=== PATIENT | male | born 1965 | race Caucasian/White ===

== ENCOUNTER 2017-06-23 19:25 | Emergency (ER) | payer OTHER ==
[2017-06-23 19:42] VITALS: TEMP 98.4
[2017-06-23] MEDS ORDERED: PROPARACAINE 0.5% 15 ML OPHT DROP ONE (20:04)
[2017-06-23] MEDS ORDERED: FLUORESCEIN SODIUM 1 MG STRIP OP ONE (21:13)
--- NOTE | 2017-06-23 21:21 | EDPHY ---
H & P Stated Complaint: right eye irritation-bug flew in it earlier Time Seen by Provider: 06/23/17 19:45 HPI/ROS: Chief complaint: Right eye irritation History of present illness: This is a 51-year-old male who presents to the emergency department for right eye irritation. Patient reports earlier today a bug flew and struck him in his right eye. Was uncomfortable and he rubbed it. Since then he has had mild irritation. However, he is more concerned he has noticed a blister forming over the outer aspect of the white aspect of his eye. He denies other injuries. He denies pain in the eye. He denies visual disturbances. No other symptoms reported. - Personal History Current Tetanus Diphtheria and Acellular Pertussis (TDAP): Yes - Medical/Surgical History Hx Asthma: No Hx Chronic Respiratory Disease: No Hx Diabetes: No Hx Cardiac Disease: No Hx Renal Disease: No Hx Cirrhosis: No Hx Alcoholism: No Hx HIV/AIDS: No Hx Splenectomy or Spleen Trauma: No - Social History Smoking Status: Never smoked - Physical Exam Exam: General: Alert, nontoxic Eyes: There is no discharge from the eye. There does appear to be a small fluid collection over the sclera of the lateral aspect of the right eye. The conjunctiva is not injected. There is no hyphema. No hypopyon. PERRLA. EOM intact. Red reflex present. Left eye unremarkable. Skin: Periorbital tissue unremarkable. Constitutional: Initial Vital Signs Temperature (C) 36.9 C 06/23/17 19:40 Heart Rate 67 06/23/17 19:40 Respiratory Rate 20 06/23/17 19:40 Blood Pressure 111/73 06/23/17 19:40 O2 Sat (%) 97 06/23/17 19:40 O2 Delivery Mode Room Air Allergies/Adverse Reactions: Penicillins Allergy (Intermediate, Verified 06/23/17 19:39) Rash Home Medications: Medication Instructions Recorded NK [No Known Home Meds] 06/23/17 Medical Decision Making Procedures: Procedure: Slit-lamp examination Indication: Eye irritation after foreign body hit it Patient's eye was instilled with fluorescein. It was examined with cobalt blue and white light. No foreign body. No filling defect. No cell and flare. No Desire sign. ED Course/Re-evaluation: Patient discussed with my secondary supervising physician Dr. Yarelis Patiño. Patient presents for right eye irritation and some blistering to the sclera of the lateral aspect of the right eye after being struck by a bug. He has an unremarkable eye history including no use of contacts, glasses or eye surgery. Examination is otherwise unremarkable. I have consulted with on-call ophthalmology Dr. Francis Laboy. He recommends placed patient on TobraDex, 1 drop every 8 hours for 7 days. Patient can follow up in his clinic. Home care is discussed with the patient. Return precautions are given. Patient voiced understanding and agreement with plan. Differential Diagnosis: Included but not limited to foreign body, corneal abrasion, corneal ulceration, globe rupture unlikely - Data Points Medications Given: Discontinued Medications Tobramycin/Dexamethasone (Tobradex) 1 drops RTEYE EDNOW ONE Stop: 06/23/17 21:25 Last Admin: 06/23/17 21:42 Dose: 1 drop Departure - Departure Disposition: Home, Routine, Self-Care Clinical Impression: Eye injury Qualifiers: Encounter type: initial encounter Laterality: right Qualified Code(s): S05.91XA - Unspecified injury of right eye and orbit, initial encounter Condition: Good Instructions: Eye Pain (ED) Additional Instructions: Please follow-up with Ophthalmology for continued evaluation and care Place 1 drop of the TobraDex in your eye every 8 hours for 7 days If symptoms worsen or new symptoms develop return to the emergency room for recheck Referrals: MERLY MORSE [Primary Care Provider] - As per Instructions Francis Laboy MD [Medical Doctor] - As per Instructions
[2017-06-23] MEDS ORDERED: TOBRAMYCIN/DEXAMETH 5 ML OPHT.BTL RTEYE ONE (21:24)
[2017-06-23 21:44] VITALS: BP 112/68; PULSE 62; RESP 18; O2SAT 96
== END 2017-06-23 21:43 | disposition home or self-care (01) ==
DX: S05.91XA Unspecified injury of right eye and orbit, initial encounter (principal); W22.8XXA Striking against or struck by other objects, initial encounter

== ENCOUNTER 2018-02-16 17:31 | Observation (INO) | payer OTHER ==
--- NOTE | 2018-02-16 17:44 | EDPHY ---
H & P Time Seen by Provider: 02/16/18 17:44 HPI/ROS: CHIEF COMPLAINT: Left leg injury HISTORY OF PRESENT ILLNESS: The patient arrives via ambulance after he fell snowboarding today. The patient struck a tree and had a twisting injury involving the left leg. The patient reportedly felt a pop and was unable to weightbear. The patient received 200 mcg of fentanyl in route. The patient currently complains of mild pain. The patient denies any associated numbness or weakness. The patient denies any pain in his knee, hip or back. He denies any headache, neck pain, chest pain or difficulty breathing. The patient reports he last ate at noon. He did drink a half a beer at 2:00 p.m.. REVIEW OF SYSTEMS: A comprehensive 10 point review of systems is otherwise negative aside from elements mentioned in the history of present illness. Source: Patient, EMS - Personal History Current Tetanus/Diphtheria Vaccine: Yes - Medical/Surgical History Hx Asthma: No Hx Chronic Respiratory Disease: No Hx Diabetes: No Hx Cardiac Disease: No Hx Renal Disease: No Hx Cirrhosis: No Hx Alcoholism: No Hx HIV/AIDS: No Hx Splenectomy or Spleen Trauma: No Other PMH: Past medical history: Noncontributory - Social History Smoking Status: Never smoked - Physical Exam Exam: General Appearance: Alert, no distress Head: Atraumatic Eyes: Pupils equal, round, reactive ENT, Mouth: No hemotympanum, no oral trauma Neck: Nontender, trachea midline Respiratory: No chest wall tender, no subcutaneous air, lungs clear bilaterally Cardiovascular: Regular rate and rhythm Abdomen: Abdomen is soft and nontender, pelvis stable Skin: No lacerations, No abrasion Back: No midline T/L/S pain Extremities: Tenderness, swelling and deformity to left distal tib-fib area Neurological: GCS 15, 5/5 strength all 4 extremities, normal sensory exam all 4 extremities Allergies/Adverse Reactions: Penicillins Allergy (Intermediate, Verified 06/23/17 19:39) Rash Home Medications: Medication Instructions Recorded oxyCODONE/APAP 5/325 [Percocet 1 - 2 tab PO Q6-8PRN PRN #20 tab 02/16/18 5/325 (RX)] Medical Decision Making - Diagnostics Imaging Results: Imaging Impressions Tibia/Fibula X-Ray 02/16/18 17:35 Impression: Tibial and fibular shaft fractures. ED Course/Re-evaluation: The patient presents the ED with a closed distal tib-fib fracture. The patient has a transverse fracture involving the distal 3rd of the tibia and fibula. The patient's fracture is closed. The patient is neurologically intact. The patient has been placed in a three-way ortho glass splint. The patient received IV fentanyl by paramedics. The extremity was elevated and ice was applied after splinting in the emergency department. Consultation was made with Dr. Bari Banks at 5:[address] Banks will be taking the patient to the operating room this evening for ORIF. The patient will be admitted to the hospital for observation following his surgery. Differential Diagnosis: Differential diagnosis considered includes fracture, sprain, dislocation, neurovascular injury, compartment syndrome Departure - Departure Disposition: [facility] Inpatient Acute Clinical Impression: Closed fracture of distal end of fibula with tibia Qualifiers: Encounter type: initial encounter Laterality: left Qualified Code(s): S82.302A - Unspecified fracture of lower end of left tibia, initial encounter for closed fracture Prescriptions: oxyCODONE/APAP 5/325 [Percocet 5/325 (RX)] 1 - 2 tab PO Q6-8PRN PRN #20 tab PRN Reason: for pain
[2018-02-16] MEDS ORDERED: OXYCODONE/APAP 5/325MG PREPACK#4 BTL TAKEHOME ONE (18:01)
[2018-02-16] MEDS ORDERED: BUPIVACAINE/EPI 0.5% 30 ML SDV ONE (19:37)
[2018-02-16] MEDS ORDERED: MIDAZOLAM 2 MG/2 ML VIAL IVP ONE (20:04)
[2018-02-16] MEDS ORDERED: VANCOMYCIN HCL/NORMAL SALINE 250 ML IV ONE (20:05)
--- NOTE | 2018-02-16 20:05 | PDANEPAE ---
ANE History of Present Illness Patient presents for Left Tib/Fib ORIF ANE Past Medical History - Pulmonary History Hx Oxygen in Use at Home: No Hx Sleep Apnea: No - Endocrine History Hx Diabetes: No ANE Review of Systems Review of Systems: - Exercise capacity Exercise capacity: >=4 METS ANE Patient History - Allergies Allergies/Adverse Reactions: Penicillins Allergy (Intermediate, Verified 06/23/17 19:39) Rash - Home Medications Home medications: home medication list seen and reviewed Home Medications: NK [No Known Home Meds] 02/16/18 [Last Taken Unknown] - NPO status NPO Status: no food or drink >8 hours - Anes Hx Anes Hx: no prior problems - Smoking Hx Smoking Status: Never smoked ANE Labs/Vital Signs - Vital Signs Blood Pressure: 112/75 Heart Rate: 81 Respiratory Rate: 16 O2 Sat (%): 98 Height: 170.18 cm Weight: 68.946 kg ANE Physical Exam - Airway Neck exam: FROM Mallampati Score: Class 2 - Pulmonary Pulmonary: no respiratory distress - Cardiovascular Cardiovascular: regular rate and rhythym - ASA Status ASA Status: I ANE Anesthesia Plan Anesthesia Plan: general endotracheal anesthesia (RBA discussed)
[2018-02-16] MEDS ORDERED: PROMETHAZINE HCL 25 MG/ML INJ IVP PRN (20:06)
[2018-02-16] MEDS ORDERED: LACTULOSE 20 GM/30 ML UDCUP PO PRN (20:06)
[2018-02-16] MEDS ORDERED: traMADol 50 MG TAB PO PRN (20:06)
[2018-02-16] MEDS ORDERED: ONDANSETRON 4 MG/2 ML VIAL IVP PRN ×2 (20:06→21:28)
[2018-02-16] MEDS ORDERED: BISACODYL 10 MG SUPP PR PRN (20:06)
[2018-02-16] MEDS ORDERED: TEMAZEPAM 15 MG CAP PO PRN (20:06)
[2018-02-16] MEDS ORDERED: POLYETHYLENE GLYCOL 3350 17 GM PKT PO PRN (20:06)
[2018-02-16] MEDS ORDERED: PROMETHAZINE HCL 25 MG SUPPR PR PRN (20:06)
[2018-02-16] MEDS ORDERED: fentaNYL 100 MCG/2 ML INJ ONE ×4 (20:06→22:10)
[2018-02-16] MEDS ORDERED: oxyCODONE IR 5 MG TAB PO PRN ×2 (20:06→21:28)
[2018-02-16] MEDS ORDERED: MAGNESIUM HYDROXIDE 30 ML UDCUP PO PRN (20:06)
[2018-02-16] MEDS ORDERED: ONDANSETRON DISINTEGRATING 4 MG TAB PO PRN (20:06)
[2018-02-16] MEDS ORDERED: CYCLOBENZAPRINE 10 MG TAB PO PRN (20:06)
[2018-02-16] MEDS ORDERED: DIPHENOXYLATE/ATROPINE LOMOTIL 1 TAB PO PRN (20:06)
[2018-02-16] MEDS ORDERED: diphenhydrAMINE 25 MG CAP PO PRN (20:06)
[2018-02-16] MEDS ORDERED: METOCLOPRAMIDE 10 MG/2 ML VIAL IVP PRN (20:06)
[2018-02-16] MEDS ORDERED: MIDAZOLAM 2 MG/2 ML VIAL ONE (20:07)
[2018-02-16] MEDS ORDERED: SUCCINYLCHOLINE CHLORIDE 200 MG/10 ML SYR IVP ONE (20:07)
[2018-02-16] MEDS ORDERED: PROPOFOL 200 MG/20 ML VIAL ONE ×2 (20:07→20:25)
[2018-02-16] MEDS ORDERED: LIDOCAINE 2% 5 ML SDV ONE (20:07)
[2018-02-16] MEDS ORDERED: DEXAMETHASONE 4 MG/ML VIAL ONE (20:08)
[2018-02-16] MEDS ORDERED: ONDANSETRON 4 MG/2 ML VIAL ONE (20:08)
--- NOTE | 2018-02-16 20:21 | GHP ---
[f rep st] HISTORY AND PHYSICAL DATE OF ADMISSION: 02/16/2018 CHIEF COMPLAINT: Left leg injury. HISTORY OF PRESENT ILLNESS: The patient is a 52-year-old gentleman who is known to me for previous l eft knee surgery. He presented by ambulance after he fell snowboarding. He struck a tree, twisted a cross his left leg. He felt a pop, was unable to weight bear. He has only mild discomfort. He ousmane es any numbness or tingling. He denies any neck, back, or upper extremity complaints. He has no rig ht-sided discomfort. PAST MEDICAL HISTORY: Denies. PAST SURGICAL HISTORY: Left knee as above. MEDICATIONS: None. ALLERGIES: Penicillin gives him a rash. SOCIAL HISTORY: He denies any tobacco. Minimal alcohol. REVIEW OF SYSTEMS: Negative for current chest pain, shortness of breath, belly pain, back pain, numb ness, tingling, other joint related complaints. OBJECTIVE: Healthy gentleman, who is seated in the preoperative area in a bed. HEENT: Normocephali c. Bilateral upper extremities are unremarkable. Limited examination of the left lower extremity re veals he has a splint to his left lower extremity. The knee demonstrates a well-healed medial arthro blanca site. There is no effusion or crepitus. He has no tenderness over the proximal thigh or hip an d intact digital flexion/extension. Brisk capillary refill. Toes are warm and pink. IMPRESSION: Transverse fracture distal third tibia and fibular fracture, displaced. TREATMENT PLAN: I have recommended surgical stabilization with intramedullary kasia. I have outlined the surgical procedure, risks, benefits, and alternatives. He understood this and wished to proceed. Written consent was signed and placed in the patient's chart. I also discussed specifically development of compartment syndrome. I feel he is low risk for this bu t he will be observed. /[id number]/MODL
[2018-02-16] MEDS ORDERED: LR 1,000 ML IV SCH (20:30)
[2018-02-16] MEDS ORDERED: VANCOMYCIN 1 GM in NS 250 ML IV ONE (20:30)
[2018-02-16] MEDS ORDERED: NALOXONE HCL 0.4 MG/ML INJ IVP PRN (21:28)
[2018-02-16] MEDS ORDERED: LR 500 ML IV PRN (21:28)
[2018-02-16] MEDS ORDERED: fentaNYL 100 MCG/2 ML INJ IVP PRN (21:28)
--- NOTE | 2018-02-16 22:04 | POSTANESTH ---
Post Anesthetic Evaluation Cardiovascular Status: Similar to Pre-Op Cond Respiratory Status: Similar to Pre-op Cond. Level of Consciousness/Mental Status: Alert and Oriented Pain Control: Adequate, Prn Tx Ordered Nausea/Vomiting Control: Adequate, Prn Tx Ordered Complications Possibly Related to Anesthesia: None Noted
[2018-02-16] MEDS: FAMOTIDINE 20 MG TAB PO SCH (22:32)
[2018-02-16] MEDS: SENNOSIDES/DOCUSATE SODIUM TAB PO SCH (22:32)
[2018-02-17] MEDS: ACETAMINOPHEN 325 MG TAB PO SCH ×2 (00:21→05:54)
--- NOTE | 2018-02-17 06:55 | SOAPPROG ---
SOAP Progress Note Assessment/Plan: Assessment: left tib fib fx Plan: d/c home dvt precautions ice and elevate keep splint clean dry and intact 02/17/18 06:53 Subjective: no pain no cp or sob Objective: Vital Signs Temp Pulse Resp BP Pulse Ox 36.6 C 85 17 112/69 97 02/17/18 03:42 02/17/18 03:42 02/17/18 03:42 02/17/18 03:42 02/17/18 03:42 Laboratory Results 02/17/18 04:21 02/16/18 02/17/18 02/18/18 05:59 05:59 05:59 Intake Total 1400 Output Total 575 Balance 825 dressing intact intact digital flexion and extension toes warm and pink neg homans gregorio no evidence of compartment syndrome xrays 2 deg valgus ICD10 Worksheet Patient Problems: Problems Problem Status Onset Closed fracture of distal end of fibula with tibia Acute
--- NOTE | 2018-02-17 07:13 | GDS ---
[f rep st] DISCHARGE SUMMARY ADMITTING DIAGNOSIS: Left tibia-fibula fracture, closed. DISCHARGE DIAGNOSIS: Left tibia-fibula fracture, closed. PROCEDURE: Open reduction, internal fixation, left tib-fib fracture with intramedullary implant. HISTORY OF PRESENT ILLNESS: The patient is a 52-year-old gentleman who crashed into a tree while ski ing. He fractured his left tibia and fibula. This was a closed distal shaft fracture. Given the fr acture displacement and malalignment, I recommended stabilization. He understood the risks, benefits , alternatives, and wished to proceed. Written consent was signed and placed in the patient's chart. HOSPITAL COURSE: The patient was admitted after uncomplicated IM nailing of a left tib-fib fracture. He tolerated this well. Overnight had no complications. At the time of discharge, he is toleratin g an oral diet. Pain is well-controlled on oral medicines. He is voiding without difficulty. Dress ing is clean, dry, and intact. X-rays are anatomic. He has no evidence of compartment syndrome. DISCHARGE ACTIVITY: He is touchdown weightbearing only. Range of motion as tolerated at the knee. Keep the dressing clean, dry, and intact. FOLLOW UP: At 2 weeks. Seek attention for any increasing redness, swelling, drainage, discharge, nu mbness or other focal complaint. /[id number]/MODL
[2018-02-17 07:43] VITALS: BP 114/73
[2018-02-17] MEDS: FAMOTIDINE 20 MG TAB PO SCH (09:14)
[2018-02-17] MEDS: SENNOSIDES/DOCUSATE SODIUM TAB PO SCH (09:15)
--- NOTE | 2018-02-17 09:34 | ASMTLACE ---
LACE Length of stay for Answers: Less than 1 day current admission Acuity / Level of Answers: No Care: Did the patient have an inpatient admission? # of Emergency department Answers: 1-2 visits in the last 6 months Score: 1 Date Signed: 02/17/2018 09:33 AM Electronically Signed By:Jacqueline Soares RN
--- NOTE | 2018-02-17 09:38 | ASMTCMCOM ---
CM Note CM Note Notes: Chart reviewed. Patient s/p tib/fib fracture dcd' to home with no needs. Cm available should needs arise. Plan: Home Date Signed: 02/17/2018 09:38 AM Electronically Signed By:Jacqueline Soares RN
--- NOTE | 2018-02-20 09:18 | GOP ---
[f rep st] OPERATIVE REPORT DATE OF OPERATION: 02/16/2018 SURGEON: Bari Banks MD TOWER TRUCK DRIVER: Armen Leonardo, RD LAB TECHNICIAN, HOME ORGANIZER, surgical supply assistant who was a medical necessity for the entiret y of the case. PREOPERATIVE DIAGNOSIS: Left closed tibia and fibular fracture. POSTOPERATIVE DIAGNOSIS: Left closed tibia and fibular fracture. PROCEDURE PERFORMED: Open reduction, internal fixation, left tibia-fibula fracture with intramedulla ry implant. FINDINGS: SPECIMENS: None. INDICATIONS: The patient is a 52-year-old gentleman who crashed into a tree while skiing, fractured his left tibia and fibula. This was a closed shaft injury. Given the displacement and malalignment, I recommended stabilization. He understood the risks, benefits, alternatives, and wished to proceed. W delfinoten consent was signed and placed in patient's chart. DESCRIPTION OF PROCEDURE: The patient was identified in the preanesthesia area. The left leg clearly demarcated as the operative site with indelible marker. He was given 2 g of Ancef intravenously en r oute to the operative suite. In the OR, general endotracheal anesthesia was administered. Attention w as turned to the left lower extremity, which was sterilely prepped and draped in usual fashion. Appro priate time-out procedure was carried out. The limb was exsanguinated and the tourniquet inflated to 275 mmHg. Standard anterior medial incision was utilized through his previous incision site from a pr ior surgery. It was carried sharply through the skin and subcutaneous tissue to the patellar tendon p aratenon. This was elevated in a medial direction and opened into an articular portion of the anterio r aspect of the knee. A guide pin was then placed across the anterior central aspect of the knee, con firmed on both the AP and lateral views, and the proximal canal opened. A guidewire was advanced acro ss the fracture site with digital reduction held in place. Serial reaming was carried out to 12.5 mm diameter reamer. A 380 mm x 11 mm nail was advanced across the guidewire and fracture site. This was confirmed to be located in appropriate position with appropriate reduction of the tibial shaft. This was locked with a static locking screw both proximally and 2 distal interlocking screws. The wounds w ere copiously irrigated, closed in layers using 2-0 Monocryl, and dylan. The margins were instilled with % Marcaine with epinephrine; total 20 cc. Sterile compressive dressing and posterior 3-way splint were applied. The patient was awakened, extubated, taken to recovery room in good stabl e condition. TOTAL TOURNIQUET TIME: 50 minutes. COMPLICATIONS: None. IMPLANTS: As above. /[id number]/MODL
== END 2018-02-17 12:05 | disposition home or self-care (01) ==
LOC: EDUNIT# → F3N 22:45
PROVIDERS: ADMIT Orthopaedic Surgery; ATTEND Orthopaedic Surgery
PROC: 0QSH04Z Reposition Left Tibia with Internal Fixation Device, Open Approach (ICD-10-PCS; principal; 2018-02-16 20:00)
PROC: 0QSK04Z Reposition Left Fibula with Internal Fixation Device, Open Approach (ICD-10-PCS; principal; 2018-02-16 20:00)
DX: S82.422A Displaced transverse fracture of shaft of left fibula, initial encounter for closed fracture (principal); S82.222A Displaced transverse fracture of shaft of left tibia, initial encounter for closed fracture; V00.312A Snowboarder colliding with stationary object, initial encounter; Y93.23 Activity, snow (alpine) (downhill) skiing, snowboarding, sledding, tobogganing and snow tubing; Y92.838 Other recreation area as the place of occurrence of the external cause
CPT/HCPCS: 27758; 73590; 76001; 97161; 97165; 97530; 99285; C1769; G0378; C1713; J0330; J1100; J2250; J2405; J2704; J3010; J3370

== ENCOUNTER → 2018-03-27 | Outpatient (CLI) | payer OTHER | LOC: BMCIMAGING 10:57 | PROVIDERS: ATTEND Physician Assistant | DX: S82.432D Displaced oblique fracture of shaft of left fibula, subsequent encounter for closed fracture with routine healing (principal); S82.232D Displaced oblique fracture of shaft of left tibia, subsequent encounter for closed fracture with routine healing ==

== ENCOUNTER → 2018-05-06 | Outpatient (CLI) | payer OTHER | LOC: BMCIMAGING 14:00 | PROVIDERS: ATTEND Physician Assistant | DX: S82.392D Other fracture of lower end of left tibia, subsequent encounter for closed fracture with routine healing (principal) ==

== ENCOUNTER → 2019-01-15 | Outpatient (CLI) | payer OTHER | LOC: BMCIMAGING 08:10 | PROVIDERS: ATTEND Physician Assistant | DX: S82.422D Displaced transverse fracture of shaft of left fibula, subsequent encounter for closed fracture with routine healing (principal) ==